=== PATIENT | female | born 2000 | race Two or more races ===

== ENCOUNTER 2021-07-02 08:08 | Emergency (ER) | payer OTHER ==
[~2021-07-02] VITALS: Ht 167.6 cm; Wt 65.0 kg
[2021-07-02 08:21] VITALS: BP 122/67
--- NOTE | 2021-07-02 08:31 | RAD ---
XR HAND_LEFT 3 VIEWS History: Blunt injury over metacarpals. Comparison: None. Technique: 3 views the left hand. Findings: Osseous mineralization is normal. No acute fracture or dislocaton. No significant degenerative change s. Soft tissues are unremarkable. Impression: 1. No acute osseous abnormality of the left hand. Electronically signed by: Edward David MD (07/02/2021 8:28 AM) [id number]
--- NOTE | 2021-07-02 08:38 | PHYS DOC ---
Past History Past Surgical History: Other Additional Past Surgical Histo: KNEE SUREGERY Alcohol Use: None General Adult EDM: Chief Complaint: HAND PROBLEM HPI: HPI: 21-year-old female with no significant past medical history, presents the ED with complaints of left dorsal hand pain after she dropped a dresser she was moving. States she was holding the dresser in her left palm-hand was smashed between the dresser and the tile floor. No prior injury to this extremity. Is right-hand dominant. Denies any decreased range of motion. Reports vaccines including tetanus are up-to-date. States the redness in the back of her hand is increasing in size. Denies any head injury or loss of consciousness. Review of Systems: Review of Systems: Constitutional: Denies fever or chills Eyes: Denies change in visual acuity HENT: Denies nasal congestion or sore throat Respiratory: Denies cough or shortness of breath Cardiovascular: Denies chest pain or edema GI: Denies nausea or vomiting Musculoskeletal: Denies back pain or joint pain Integument: Denies desquamation or blistering lesions Neurologic: Denies focal weakness or sensory changes Psychiatric: Denies depression or anxiety Allergies: Allergies: Allergies Coded Allergies Type Severity Reaction Last Updated Verified No Known Drug Allergies 07/02/21 No Physical Exam: PE: Constitutional: Well developed, well nourished, no acute distress, non-toxic appearance. HENT: Normocephalic, atraumatic, Eyes: EOMI, conjunctiva normal, no discharge. Neck: Normal range of motion, supple, Cardiovascular: S1/2 present, regular rhythm Lungs & Thorax: Speaking in full sentences, bilateral equal chest rise, no t achypnea or increased work of breathing Skin: Warm, dry, 85% of dorsal wrist with contusion and erythematous patches-no crepitus or subcutaneous emphysema Extremities: Tender dorsal wrist with swelling, median/radial/ulnar nerve sensation intact, equal radial pulses, cap refill less than 1 second in all 5 fingers, patient with full range of motion in left fingers/wrist/elbow, no ac tive bleeding Neurologic: Alert and oriented X 3, normal motor function, normal sensory function, no focal deficits noted. [] Psychologic: Affect normal, judgement normal, mood normal. [] Current Patient Data: Vital Signs: Vital Signs Date Time Temp Pulse Resp B/P (MAP) Pulse Ox O2 Delivery O2 Flow Rate FiO2 07/02/21 08:21 97.7 105 18 122/67 (85) 100 Room Air EKG: EKG: [] Radiology/Procedures: Radiology/Procedures: IMAGING REPORT Signed PATIENT: MANISH MACIELOUNT: [id number] : 2000 LOCATION: ER AGE: 21 SEX: F EXAM STATUS: REG ER ORD. PHYSICIAN: DARLEEN CRAIN DO REASON: blunt uinjury/hand pain over metacarpals PROCEDURE: HAND LEFT 3V XR HAND_LEFT 3 VIEWS History: Blunt injury over metacarpals. Comparison: None. Technique: 3 views the left hand. Findings: Osseous mineralization is normal. No acute fracture or dislocaton. No significant degenerative changes. Soft tissues are unremarkable. Impression: 1. No acute osseous abnormality of the left hand. Electronically signed by: Edward Cleveland MD (07/02/2021 8:28 AM) [id number] DICTATED AND SIGNED BY: EDWARD CLEVELAND MD DATE: 07/02/21825 CC: GABY GOODWIN; DARLEEN CRAIN DO ~MTH0 0 Heart Score: C/O Chest Pain: No Risk Factors: Risk Factors: DM, Current or recent (<one month) smoker, HTN, HLP, family history of CAD, obesity. Risk Scores: Score 0 - 3: 2.5% MACE over next 6 weeks - Discharge Home Score 4 - 6: 20.3% MACE over next 6 weeks - Admit for Clinical Observation Score 7 - 10: 72.7% MACE over next 6 weeks - Early Invasive Strategies Course & Med Decision Making: Course & Med Decision Making Pertinent Labs and Imaging studies reviewed. (See chart for details) Concern for left dorsal wrist contusions with likely early cellulitis. Will cover with antibiotics and recommend [id number] analgesia/rice instructions. Imaging with no obvious fracture. Will discharge home with strict ED return precautions were given for decreased range of motion, repeat injury, severe pain or neurologic deficits. Encouraged urgent outpatient follow-up with PMD and hand surgery if range of motion should be become decreased. Life- threatening processes were considered but are low suspicion at this time, given history, physical exam and ED workup. Pt was educated on all prescription medications and adverse effects. All patient's questions were answered and pt was stable at time of discharge. Life/limb-threatening differential includes but is not limited to, trauma (fracture, dislocation, laceration, compartment syndrome, tendon or ligament injury), neurovascular injury or deficitcva/tia, infection (osteomyelitis, abscess, cellulitis, septic arthritis, necrotizing fasciitis), deep vein thrombosis, renal/cardiac/liver disease, medication adverse effect, lymphedema/anasarca, vascular insufficiency or malignancy, I have spoken with the patient and/or caregivers. I explained the patient's condition, diagnoses and treatment plan based on the information available to me at this time. I have answered the patient and/or caregiver's questions and addressed any concerns. The patient and/or caregivers have a good understanding of patient's diagnosis, condition and treatment plan as can be expected at this point. Vital signs have been stable. Patient's condition is stable and appropriate for discharge from the emergency department. Patient will pursue further outpatient evaluation with primary care physician or other designated or consulting physician as outlined in the discharge instru ctions. The patient and/or caregivers are agreeable to this plan of care and follow-up instructions have been explained in detail. The patient and/or caregivers have received these instructions in written form and have expressed an understanding of the discharge instructions. The patient and/or caregivers are aware that any significant change of condition or worsening of symptoms should prompt immediate return to this or the closest emergency department or call to 911. Ester Disclaimer: Ester Disclaimer: This electronic medical record was generated, in whole or in part, using a voice recognition dictation system. Departure Departure: Impression: Primary Impression: Contusion of left hand Additional Impression: Cellulitis of left hand excluding fingers and thumb Disposition: 01 HOME / SELF CARE / HOMELESS Condition: STABLE Referrals: GABY GODOWIN (PCP) [phone]-Dr. Cohn [phone] Patient Instructions: Cellulitis, Hand Contusion Additional Instructions: [facility] FOR DEFIINITIVE MANAGEMENT WITHIN THE NEXT 7 DAYS if you should develop any decreased range of motion Appointments may be made with Leonard Winston MD, Haseeb Dunne MD, Mc Urena MD or Garfield Israel MD, by calling [phone] EMERGENCY DEPARTMENT GENERAL DISCHARGE INSTRUCTIONS Thank you for coming to [facility] (ED) today and trusting us with you care. We trust that you had a positivie experience in our Emergency Department. If you wish to speak to the department management, you may call the director at [phone]. YOUR FOLLOW UP INSTRUCTIONS ARE FOLLOWS: 1. Do you have a private Doctor? If you do not have a private doctor, please ask for a resource list of physicians or clinics that may be able to assist you with follow up care. 2. The Emergency Physician has interpreted your x-rays. The X-Ray specialist will also review them. If there is a change in the findings, you will be notified in 48 hours when at all possible. 3. A lab test or culture has been done, your results will be reviewed and you will be notified if you need a change in treatment. ADDITIONAL INSTRUCTIONS AND INFORMATION: 1. Your care today has been supervised by a physician who is specially trained in emergency care. Many problems require more than one evaluation for a complete diagnosis and treatment. We recommend that you schedule your follow up appointment as recommended to ensure complete treatment of you illness or injury. If you are unable to obtain follow up care and continue to have a problem, or if your condition worsens, we recommend that you return to the ED. 2. We are not able to safely determine your condition over the phone nor are we able to give sound medical advice over the phone. For these safety reasons, if you call for medical advice we will ask you to come to the ED for further evaluation. 3. If you have any questions regarding these discharge instructions please call the ED at [phone]. SAFETY INFORMATION: In the interest of safety, wellness, and injury prevention; we encourage you to wear your sealbelt, if you smoke; quite smoking, and we encourage family to use a protective helmet for bicycling and other sporting events that present an increased risk for head injury. IF YOUR SYMPTOMS WORSEN OR NEW SYMPTOMS DEVELOP, OR YOU HAVE CONCERNS ABOUT YOUR CONDITION; OR IF YOUR CONDITION WORSENS WHILE YOU ARE WAITING FOR YOUR FOLLOW UP APPOINTMENT; EITHER CONTACT YOUR PRIMARY CARE DOCTOR, THE PHYSICIAN WHOSE NAME AND NUMBER YOU WERE GIVEN, OR RETURN TO THE ED IMMEDIATELY. Scripts Cephalexin (KEFLEX) 500 Mg Capsule 1 CAP PO QID for hand cellulitis for 10 Days, #40 CAP Prov: DARLEEN CRAIN DO 07/02/21 DARLEEN CRAIN DO Jul 02, 2021 08:38
[2021-07-02] MEDS ORDERED: CEPH500C PO (09:01)
== END 2021-07-02 09:11 | disposition home or self-care (01) ==
LOC: ER 08:08
DX: S60.222A Contusion of left hand, initial encounter (principal); L03.114 Cellulitis of left upper limb; W20.8XXA Other cause of strike by thrown, projected or falling object, initial encounter; Y93.89 Activity, other specified; Y92.89 Other specified places as the place of occurrence of the external cause; Y99.8 Other external cause status
CPT/HCPCS: 73130; 99283